=== PATIENT | female | born 1950 | race Caucasian/White ===

== ENCOUNTER 2025-01-06 17:39 | Inpatient (IN) | payer MEDICARE, OTHER ==
[~2025-01-06 17:39] MED LIST: Iopamidol 300 61% 100 ML VIAL FS ONE
[2025-01-06 18:09] LABS: #Basophils 0.04 10x3/uL (0.0-0.2); #Eosinophils 0.17 10x3/uL (0.0-0.5); #Monocytes 0.69 10x3/uL (0.0-1.1); #Neutrophils 4.04 10x3/uL (1.5-8.4); %Basophils 0.6 % (0.0-2.0); %Eosinophils 2.6 % (0.0-6.0); %Lymphocytes 22.9 % (18.0-47.0); %Monocytes 10.7 % (0.0-10.0); %Neutrophils 63.0 % (40.0-75.0); Hematocrit 35.7 % (34.9-44.5); Hemoglobin 11.6 g/dL (12.0-15.5); Mean Corpuscular Hemoglobin 29.6 pg (27.0-33.0); Mean Corpuscular Volume 91.1 fL (81.6-98.3); Platelet Count 271 10x3/uL (150-450); Red Blood Cell (RBC) Count 3.92 10x6/uL (3.90-5.03); White Blood Cell (WBC) Count 6.42 10x3/uL (3.5-10.5)
[2025-01-06 18:24] LABS: ALT (SGPT) 19 U/L (Less than 34); AST (SGOT) 27 U/L (11-34); Albumin 4.0 g/dL (3.1-4.5); Alkaline Phosphatase 83 U/L (40-110); Anion Gap 17 mmol/L (10-20); BUN (Urea Nitrogen) 19 mg/dL (9.8-20.1); Bilirubin, Total 0.3 mg/dL (0.3-1.2); Calc. Creatinine Clearance 0 mL/min (70-130); Calcium 9.6 mg/dL (7.8-10.44); Carbon Dioxide 22 mmol/L (23-31); Chloride 102 mmol/L (98-107); Globulin 4.0 g/dL (2.4-3.5); Glucose 91 mg/dL (83-110); Potassium 4.2 mmol/L (3.5-5.1); Sodium 137 mmol/L (136-145)
[2025-01-06] MEDS ORDERED: Dexamethasone 10 MG/ML VIAL ONE (18:51)
[2025-01-06] MEDS ORDERED: Melatonin 3 MG TAB PO PRN (19:30)
[2025-01-06] MEDS ORDERED: Ondansetron PF 4 MG/2 ML Vial IVP PRN (19:30)
[2025-01-06] MEDS: Acetaminophen 325 MG TAB PO PRN (20:28)
[2025-01-06] MEDS: Famotidine 20 MG TAB PO SCH (20:30)
[2025-01-06] MEDS: Albuterol 2.5 MG (3 mL) NEB NEB PRN (20:55)
[2025-01-06] MEDS ORDERED: hydrALAZINE 20 MG/ML VIAL SLOW IVP PRN (21:06)
[2025-01-06] MEDS: diphenhydrAMINE 12.5 MG/5 ML UDCUP PO SCH (21:17)
[2025-01-06] MEDS: hydrALAZINE 20 MG/ML VIAL SLOW IVP SCH (21:18)
[2025-01-06] MEDS: Famotidine/PF 20 mg/2ml Vial SLOW IVP SCH (21:19)
[2025-01-06] MEDS: Azithromycin 500 MG in Sodium Chloride 0.9% 250 ML 250 ML IVPB SCH (21:38)
[2025-01-06 21:40] LABS: Magnesium 1.9 mg/dL (1.6-2.6)
[2025-01-06 21:44] LABS: Troponin I Less than 0.010 ng/mL (< 0.028)
[2025-01-06 22:17] LABS: Actual Bicarbonate (HCO3v) 27.5 mEq/L (22-28); Analyzer IN Cardio CS ICU; Base Excess 2.5 mEq/L (-2 - +2); Calcium, Ionized (venous) 1.13 mmol/L (1.16-1.32); Chloride (VBG) 101 mmol/L (98-106); Critical Notified By: CP.PH; Hematocrit-VBG 36 % (36.0-47.0); Hemoglobin (Hb) 12.3 g/dL (11.7-16.1); Potassium (VBG) 4.44 mmol/L (3.70-5.30); Puncture Site Other Site; RapidComm Collect By LAB; Sodium 138 mmol/L (133-146)
[2025-01-06] MEDS: Magnesium Sulfate/D5W 1 GM in Premix 1 BAG IVPB SCH (22:40)
[2025-01-07 04:10] LABS: Hematocrit 34.6 % (34.9-44.5); Hemoglobin 11.0 g/dL (12.0-15.5); Mean Corpuscular Hemoglobin 28.9 pg (27.0-33.0); Mean Corpuscular Volume 90.8 fL (81.6-98.3); Platelet Count 257 10x3/uL (150-450); Red Blood Cell (RBC) Count 3.81 10x6/uL (3.90-5.03); White Blood Cell (WBC) Count 5.56 10x3/uL (3.5-10.5)
[2025-01-07 04:13] LABS: MDiff Complete? YES; Platelet Adequacy Comment Appears Adequate; RBC Morphology Within Normal Limits
[2025-01-07 04:16] LABS: ALT (SGPT) 17 U/L (Less than 34); AST (SGOT) 22 U/L (11-34); Albumin 3.6 g/dL (3.1-4.5); Alkaline Phosphatase 74 U/L (40-110); Anion Gap 15 mmol/L (10-20); BUN (Urea Nitrogen) 17 mg/dL (9.8-20.1); Bilirubin, Total 0.2 mg/dL (0.3-1.2); Calc. Creatinine Clearance 84 mL/min (70-130); Calcium 9.0 mg/dL (7.8-10.44); Carbon Dioxide 23 mmol/L (23-31); Chloride 104 mmol/L (98-107); Globulin 3.8 g/dL (2.4-3.5); Glucose 159 mg/dL (83-110); Potassium 4.2 mmol/L (3.5-5.1); Sodium 138 mmol/L (136-145)
[2025-01-07 05:27] VITALS: BMI 37.0
[2025-01-07] MEDS: PARoxetine 20 MG TAB PO SCH (08:23)
[2025-01-07] MEDS: NIFEdipine XL 30 MG ER.TAB PO SCH (08:23)
[2025-01-07] MEDS: Enoxaparin 40 MG (0.4 mL) SYRINGE SC SCH (08:23)
[2025-01-07] MEDS: diphenhydrAMINE 12.5 MG/5 ML UDCUP PO SCH (08:24)
[2025-01-08 07:28] VITALS: TEMP 97.9
[2025-01-08 08:18] VITALS: BP 142/70
== END 2025-01-08 10:01 | disposition home or self-care (01) | DRG 203 ==
LOC: CSHERS 17:39 → CSHICU 19:30 → OBSVTOIN 20:20
PROVIDERS: ADMIT Internal Medicine; ATTEND Internal Medicine
DX: J45.901 Unspecified asthma with (acute) exacerbation (principal); T78.3XXA Angioneurotic edema, initial encounter; I10 Essential (primary) hypertension; E03.9 Hypothyroidism, unspecified; F32.A Depression, unspecified; Z88.2 Allergy status to sulfonamides; J04.0 Acute laryngitis; Z79.899 Other long term (current) drug therapy; Z79.890 Hormone replacement therapy
CPT/HCPCS: 36415; 70492; 71045; 80053; 82805; 83605; 83735; 83880; 84145; 84484; 85025; 87081; 87400; 87426; 87430; 93005; 94640; 94762; 96374; J0360; J0456; J1100; J1308; J1650; J2919; J3475; J7050; J7611; J7626; Q0163; Q9967

== ENCOUNTER 2025-02-15 09:11 | Outpatient (CLI) | payer MEDICARE, OTHER | END 2025-02-15 09:12 | disposition home or self-care (01) | LOC: CSHSLEEP 09:11 | PROVIDERS: ATTEND Student in an Organized Health Care Education/Training Program | DX: G47.33 Obstructive sleep apnea (adult) (pediatric) (principal); R53.83 Other fatigue; F32.A Depression, unspecified; E66.9 Obesity, unspecified; Z68.36 Body mass index [BMI] 36.0-36.9, adult; R06.83 Snoring; I10 Essential (primary) hypertension; G47.61 Periodic limb movement disorder | CPT/HCPCS: 95810 ==